=== PATIENT | female | born 1965 | race Caucasian/White ===

== ENCOUNTER 2017-06-30 08:00 | Emergency (ER) | payer SELFPAY ==
[~2017-06-30] VITALS: Ht 165.1 cm; Wt 80.0 kg
[2017-06-30 08:03] VITALS: BP 110/66; PULSE 90; RESP 18; TEMP 98.2; O2SAT 96
[2017-06-30] MEDS ORDERED: BUPR150CR PO (08:25)
[2017-06-30] MEDS ORDERED: CLON1TAB PO (08:25)
[2017-06-30] MEDS ORDERED: MAGN400T3 PO (08:25)
--- NOTE | 2017-06-30 08:54 | PD ---
HPI Chief Complaint: Anxiety Time Seen by Provider: 08:22 Travel History International Travel<30 days: No Contact w/Intl Traveler<30days: No Traveled to known affect area: No History of Present Illness HPI 51-year-old female complains of insomnia, restless legs. Patient has history anxiety and has been seen by personal physician. Patient was given Klonopin 1 mg twice a day for anxiety. Patient states that she has spasm and restless legs for the past 2 weeks. Patient states that she has insomnia for the past 2 weeks. Patient denies any headache. Patient denies any chest pain or shortness of breath. Patient denies abdominal pain. Patient also on magnesium and Wellbutrin. Patient denies alcohol or drug abuse. Patient denies history hypertension, diabetes, hyperlipidemia. Patient is a non-smoker. PFSH Past Medical History Anxiety: Yes Depression: Yes Tetanus Vaccination: > 5 Years Influenza Vaccination: No ?: Not LMP: 2-3 weeks ago Past Surgical History Cholecystectomy: Yes Other Surgery: Yes (breast reduction) Social History Alcohol Use: No Tobacco Use: No Allergies-Medications (Allergen,Severity, Reaction): Coded Allergies: diphenhydramine (Verified Allergy, Severe, agitation, 06/30/17) Reported Meds & Prescriptions Reported Meds & Active Scripts Active Reported Clonazepam 1 Mg Tab 1 Mg PO BID PRN Wellbutrin SR 12 HR (Bupropion HCl) 150 Mg Tab 150 Mg PO Q12HR Magnesium 400 Mg Tab 400 Mg PO DAILY Review of Systems General / Constitutional: No: Fever Eyes: No: Visual changes HENT: No: Headaches Cardiovascular: No: Chest Pain or Discomfort Respiratory: No: Shortness of Breath Gastrointestinal: No: Abdominal Pain Genitourinary: No: Dysuria Musculoskeletal: Positive: Cramping, No: Pain Skin: No Rash Neurologic: No: Weakness Psychiatric: No: Depression Endocrine: No: Polydipsia Hematologic/Lymphatic: No: Easy Bruising Physical Exam Narrative GENERAL: Well-nourished, well-developed patient. SKIN: Focused skin assessment warm/dry. HEAD: Normocephalic. EYES: No scleral icterus. No injection or drainage. NECK: Supple, trachea midline. No JVD or lymphadenopathy. CARDIOVASCULAR: Regular rate and rhythm without murmurs, gallops, or rubs. RESPIRATORY: Breath sounds equal bilaterally. No accessory muscle use. GASTROINTESTINAL: Abdomen soft, non-tender, nondistended. MUSCULOSKELETAL: No cyanosis, or edema. Mild tenderness on palpation lateral aspect of the right thigh area. Full range of motion of upper and lower extremity. BACK: Nontender without obvious deformity. No CVA tenderness. Neurologic exam normal. Data Data Last Documented VS Vital Signs Date Time Temp Pulse Resp B/P (MAP) Pulse Ox O2 Delivery O2 Flow Rate FiO2 06/30/17 09:15 71 18 97/64 (75) 98 Room Air 06/30/17 08:03 98.2 Orders Orders Complete Blood Count With Diff (06/30/17 08:46) Basic Metabolic Panel (Bmp) (06/30/17 08:46) Magnesium (Mg) (06/30/17 08:46) Phosphorus (Po4) (06/30/17 08:46) Iv Access Insert/Monitor (06/30/17 08:46) Labs Laboratory Tests Test 06/30/17 09:00 White Blood Count 4.9 TH/MM3 Red Blood Count 3.90 MIL/MM3 Hemoglobin 8.1 GM/DL Hematocrit 28.7 % Mean Corpuscular Volume 73.6 FL Mean Corpuscular Hemoglobin 20.9 PG Mean Corpuscular Hemoglobin Concent 28.3 % Red Cell Distribution Width 15.1 % Platelet Count 342 TH/MM3 Mean Platelet Volume 8.3 FL Neutrophils (%) (Auto) 61.9 % Lymphocytes (%) (Auto) 22.9 % Monocytes (%) (Auto) 8.6 % Eosinophils (%) (Auto) 4.9 % Basophils (%) (Auto) 1.7 % Neutrophils # (Auto) 3.1 TH/MM3 Lymphocytes # (Auto) 1.1 TH/MM3 Monocytes # (Auto) 0.4 TH/MM3 Eosinophils # (Auto) 0.2 TH/MM3 Basophils # (Auto) 0.1 TH/MM3 CBC Comment AUTO DIFF Differential Comment AUTO DIFF CONFIRMED Platelet Estimate NORMAL Platelet Morphology Comment NORMAL Blood Urea Nitrogen 12 MG/DL Creatinine 0.62 MG/DL Random Glucose 85 MG/DL Calcium Level 8.4 MG/DL Phosphorus Level 3.1 MG/DL Magnesium Level 2.1 MG/DL Sodium Level 142 MEQ/L Potassium Level 4.4 MEQ/L Chloride Level 110 MEQ/L Carbon Dioxide Level 26.1 MEQ/L Anion Gap 6 MEQ/L Estimat Glomerular Filtration Rate 101 ML/MIN MDM Medical Decision Making Medical Screen Exam Complete: Yes Emergency Medical Condition: Yes Interpretation(s) 10:33 AM. CBC WBC 4.9. Hemoglobin 8.1 hematocrit 28.7. MCV 73.6. Normal differential. BMP within normal limits. Differential Diagnosis Differential diagnosis including restless leg syndrome, anxiety, electrolyte imbalance. Narrative Course 51-year-old female with restless legs and insomnia. History of anxiety. Diagnosis Primary Impression: Anxiety Additional Impression: Restless leg syndrome Patient Instructions: General Instructions Additional Instructions: Continue with all medications. Vistaril as needed. Follow-up with personal physician. Return if worse. Med/Other Pt SpecificInfo: Prescription(s) given Scripts Hydroxyzine Pamoate (Vistaril) 25 Mg Cap 25 MG PO TID Y for ANXIETY, #30 CAP 0 Refills Prov: Edward Obrien MD 06/30/17 Disposition: 01 DISCHARGE HOME Condition: Stable Edward Obrien MD June 30, 2017 08:54
[2017-06-30 09:15] VITALS: BP 97/64; PULSE 71; RESP 18; O2SAT 98
[2017-06-30 09:16] LABS: AUTOMATED NEUTROPHIL # 3.1 TH/MM3 (1.8-7.7); BASOPHIL # 0.1 TH/MM3 (0-0.2); BASOPHIL % 1.7 % (0.0-2.0); EOSINOPHIL # 0.2 TH/MM3 (0-0.4); EOSINOPHIL % 4.9 % (0.0-4.0); HEMATOCRIT 28.7 % (35.0-46.0); HEMOGLOBIN 8.1 GM/DL (11.6-15.3); LYMPH % 22.9 % (9.0-44.0); LYMPHOCYTE # 1.1 TH/MM3 (1.0-4.8); MEAN CELL VOLUME 73.6 FL (80.0-100.0); MEAN CORPUSCULAR HEMOGLOBIN 20.9 PG (27.0-34.0); MEAN PLATELET VOLUME 8.3 FL (7.0-11.0); MONO % 8.6 % (0.0-8.0); MONOCYTE # 0.4 TH/MM3 (0-0.9); NEUT % 61.9 % (16.0-70.0); PLATELET COUNT 342 TH/MM3 (150-450); RED CELL DISTRIBUTION WIDTH 15.1 % (11.6-17.2); WHITE BLOOD COUNT 4.9 TH/MM3 (4.0-11.0)
[2017-06-30 09:24] LABS: MEAN CORPUSCULAR HGB CONC 28.3 % (32.0-36.0)
[2017-06-30 09:50] LABS: CALCIUM 8.4 MG/DL (8.5-10.1)
[2017-06-30 09:51] LABS: BICARBONATE 26.1 MEQ/L (21.0-32.0); MAGNESIUM 2.1 MG/DL (1.5-2.5)
[2017-06-30 09:54] LABS: CREATININE 0.62 MG/DL (0.50-1.00); PHOSPHORUS 3.1 MG/DL (2.5-4.9)
[2017-06-30 10:35] VITALS: BP 99/64; PULSE 88; RESP 16; O2SAT 98
[2017-06-30] MEDS ORDERED: VIST25CA PO (10:39)
== END 2017-06-30 11:15 | disposition home or self-care (01) ==
LOC: PHED 08:00
DX: F41.9 Anxiety disorder, unspecified (principal); G25.81 Restless legs syndrome; F32.9 Major depressive disorder, single episode, unspecified; G47.00 Insomnia, unspecified
CPT/HCPCS: 80048; 83735; 84100; 85025; 99283